=== PATIENT | female | born 1990 | race Two or more races ===

== ENCOUNTER → 2018-04-03 | Outpatient (REF) | payer OTHER | LOC: M LAB REF 18:57 | DX: R30.0 Dysuria (principal) | CPT/HCPCS: 87186 ==

== ENCOUNTER → 2019-03-04 | Outpatient (CLI) | payer OTHER ==
--- NOTE | 2019-03-04 15:19 | REP ---
REASON: Pain in the 3rd, 4th, and 5th digits after trauma. FINDINGS: No acute fracture or destructive osseous lesion. Electronically Signed by Aaron Vickers DO 03/04/2019 03:58 P
== END ==
LOC: M WUC 14:04
PROVIDERS: ATTEND Physician Assistant
DX: M79.674 Pain in right toe(s) (principal)

== ENCOUNTER → 2019-04-04 | Outpatient (REF) | payer OTHER | LOC: M SFHCPLAZ 10:00 | PROVIDERS: ATTEND Dermatology | DX: D22.9 Melanocytic nevi, unspecified (principal) ==

== ENCOUNTER → 2019-05-04 | Outpatient (REF) | payer OTHER | LOC: M LAB REF 12:29 | PROVIDERS: ATTEND Physician Assistant | DX: J02.9 Acute pharyngitis, unspecified (principal) ==

== ENCOUNTER → 2019-09-05 | Outpatient (CLI) | payer OTHER ==
[~2019-09-05] MED LIST: COLA100C5 PO; FERR325T3 PO; MULTTAB20 PO
== END ==
LOC: M RAD 07:32
PROVIDERS: ATTEND Internal Medicine Hematology & Oncology
DX: Z53.9 Procedure and treatment not carried out, unspecified reason (principal); R16.1 Splenomegaly, not elsewhere classified

== ENCOUNTER → 2019-09-06 | Outpatient (CLI) | payer OTHER ==
--- NOTE | 2019-09-06 08:44 | REP ---
Clinical: Thrombocytopenia Technique: Conway scale ultrasound using curved array transducer. Findings: The liver and pancreas are normal in contour, size, and echogenicity without focal hepatic or pancreatic lesions identified. The spleen is moderately enlarged and measures 13.5 x 14.2 x 6.1 cm without focal splenic lesion identified. The gallbladder is normal without gallstones, wall thickening or pericholecystic fluid. No biliary ductal dilatation is appreciated, and the common bile duct measures 6.6 mm diameter. The bilateral kidneys are normal in reniform shape without hydronephrosis. Right kidney measures 10.5 x 5.5 x 5.2cm; left kidney measures 10.9 x 5.4 x 6.2cm. No ascites. Visualized portions of the abdominal aorta normal. Impression: Moderate splenomegaly without focal splenic lesion. Electronically Signed by Prasanna Alarcon MD 09/06/2019 08:36 A
== END ==
LOC: M RAD 07:11
PROVIDERS: ATTEND Internal Medicine Hematology & Oncology
DX: D69.6 Thrombocytopenia, unspecified (principal); R16.1 Splenomegaly, not elsewhere classified

== ENCOUNTER 2020-02-09 17:27 | Inpatient (IN) | payer OTHER ==
[~2020-02-09] VITALS: Ht 175.3 cm; Wt 105.1 kg
[~2020-02-09 17:27] MED LIST changes: +CLAR10CA3 PO; +FERR325T3; +PRIL20TA2 PO
[2020-02-09 17:48] VITALS: BP 123/74
[2020-02-09] MEDS ORDERED: TUMS750C5 PO (17:51)
[2020-02-09] MEDS ORDERED: PROTPAK PO (17:51)
[2020-02-09] MEDS ORDERED: PRED50TA PO ×2 (17:51→21:28)
[2020-02-09 19:06] LABS: HEMATOCRIT 38.9 % (36.0-47.0); HEMOGLOBIN 12.7 g/dl (12.0-15.5); MEAN CORPUSCULAR HEMOGLOBIN 30.3 pg (27.0-33.0); MEAN CORPUSCULAR HGB CONC 32.6 g/dl (32.0-36.5); MEAN CORPUSCULAR VOLUME 92.8 fl (80.0-96.0); RED BLOOD COUNT 4.19 10^6/uL (4.00-5.40); WHITE BLOOD COUNT 13.3 10^3/uL (4.0-10.0)
[2020-02-09 19:11] LABS: PLATELET COUNT, AUTOMATED 73 10^3/uL (150-450)
[2020-02-09 20:23] VITALS: BP 133/75
--- NOTE | 2020-02-09 21:25 | HPEPDOC ---
Obstetrical History & Physical General Date of Admission Feb 09, 2020 at 17:27 History of Present Illness 29yo at 39+0wks presenting for IOL for ITP. She reports good FM. Denies regular ctx's, VB, or LOF. Information Provided By: Patient Age: 29 : 2 Term: 1 Pre-term: 0 Abortions: 0 Livin Care Care: Good Care Dating Final EDC: Feb 16, 2020 Final EDC for Daily Update: Feb 16, 2020 Final EDC by: LMP (c/w 8w1d U/S on [id number]) LMP: May 12, 2019 1st Trimester Date: Jul 08, 2019 Weeks + Days: 8 (+1) EGA at Admission: 39 (+0) Antepartum Course Diagnos(e)s ITP Varicella non-immune Circumvellate placenta Anemia of Excessive weight gain in Obesity in Height (inches): 69 Pre- weight (lbs.): 185 Admission Weight (lbs.): 233 Change in Weight (lbs.): 48 Past Medical History Past Obstetrical History : Past Obstetrical History: Multigravida Date of Delivery: May 08, 2012 Gestation: 39 (+4) Type of Delivery: Spontaneous Vaginal Del. 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 pertinent history Past Medical History Medical History Idiopathic thrombocytopenia Surgical History: Denies/None Family History Significant Family History: Diabetes (Mother), Other (Sister - bipolar, schizophrenia) Social History Marital Status: Family situation: Spouse/partner home Psychosocial History: No pertinent psych hx * Smoker: former Smoker (quit cigarettes in 2015, quit vaping Jul 2019) Alcohol: Denies Drugs: denies Abuse Violence Screening Have you been hit/kicked/slapp: No Have you been sexually assault: No Imunizations Tdap status: current (given 11/29/2019) Influenza Status: declined Allergies Coded Allergies: sulfamethoxazole (Verified Allergy, Unknown, 09/01/19) RASH trimethoprim (Verified Allergy, Unknown, 09/01/19) RASH Medications Scheduled Pantoprazole Sodium (Protonix) 40 Mg Granpkt.dr, 40 MG PO BID Prednisone (Prednisone) 50 Mg Tablet, 50 MG PO DAILY for low platelets No122/Iron/Folic Acid ( Multi Tablet) 1 Each Tablet, 1 TAB PO DAILY Scheduled PRN Calcium Carbonate (Tums) 300 Mg Tab.chew, 750 MG PO Q6HP PRN for HEARTBURN Physical Examination Physical Examination GENERAL: Alert and oriented times three. HEENT: NC/AT, airway patent and self-maintained ABDOMEN: Gravid and non-tender to touch. FETUS: Is vertex (VTX) by sterile vaginal examination (SVE), fetus is vertex (VTX) by Hayden. CARDS: well-perfused RESP: no exaggerated respiratory effort appreciated SVE: NEFG, cervix 2/50/-3, no VB, no abnml vaginal discharge, no pooling/valsalva EXTREMITIES: No edema. Vital Signs/I&O Vital Signs Date Time Temp Pulse Resp B/P (MAP) Pulse Ox O2 Delivery O2 Flow Rate FiO2 02/09/20 17:48 98.0 121 18 123/74 (90) Laboratory Data 24[facility] LABS Laboratory Tests 2 02/09/20 17:35: Serology Scanned Report Hepatitis B Testing 02/09/20 18:36: Nucleated Red Blood Cells % (auto) 0.0, Immature Platelet Fraction 12.6H CBC/BMP Laboratory Tests 02/09/20 18:36 Microbiology COVID test: negative Urine Culture: No Growth Pertinent Laboratoy Data Blood Type: A+ RBC Antibody Screen: Negative HIV: Negative Hepatitis B: Negative Rapid Plasma Reagin: Nonreactive Rubella: Immune Varicella: Nonreactive Chlamydia/Gonorrhea: Negative Group B Streptococcus: Negative (01/24/2020) Quad Screen Test: Declined Cystic Fibrosis: Negative Glucose Tolerance Test: 65 Anatomy Ultrasound Ultrasound Date: Aug 19, 2019 Placenta Location: Anterior Normal Anatomy: Yes Placenta Previa: No Estimated Weight (grams): 366 Other Ultrasounds [id number] - EFW 69th percentile, circumvellate placenta resolved to anterior only [id number] - EFW 85th percentile, BPP 01/20 Vaginal Examination Dilation: 2cm Effacement: 50% Station: -3 Cervical Consistency: Medium Cervical Position: Posterior Presentation: Cephalic presentation Assessment Heart Rate (FHR): 145 Variability: Moderate Accelerations: Positive Decelerations: None Tocometer Contractions: No Multi-drug resistant Organism: No history of MDRO Assessment/Plan Assessment 29yo at 39+0wks presenting for scheduled IOL for h/o ITP attempting to be in a window of higher platelet counts after completing 2 week steroid course. Plan Admit and orient. CBC, T&C due to low plts Reconciliation Analyst and consent. Diet: clears as tolerated Group B Streptococcus (GBS) [negative]. Patient noted to have decrease in plt's from 97 to 73 upon admission today. Patient counseled that risk of plt's dropping further with prolonging . Patient amenable to proceeding with IOL today. Patient counseled that due to low platelets, patient is not eligible for epidural placement. We discussed using IV pain meds (counseled on risk of infant needing to go to NICU due to risk of respirator depression) and pudendal nerve block at time of delivery. Ghanshyam tierenny tearful but understanding of the recommendation for no epidural by anesthesia for concern of spinal bleeding. Patient counseled that if section is indicated, she will need general anesthesia. Will start IOL with cytotec 50mcg buccally. Will reassess in 4 hours to determine next step of IOL. Patient may have intermittent monitoring per SOP until pitocin protocol. Anticipate [normal spontaneous delivery ()]. CHARITY CASANOVA DO Feb 09, 2020 21:25
[2020-02-09 22:29] VITALS: BP 119/57
[2020-02-09 23:51] VITALS: BP 117/66
[2020-02-10] VITALS (14 sets, daily range): BP systolic 96–134; BP diastolic 52–79
--- NOTE | 2020-02-10 01:00 | IPNPDOC ---
Obstetrical Progress Note Date of Service Feb 10, 2020 Subjective Patient reporting mild cramping pelvic pain. She is tolerating clears well. Denies LOF or VB. Objective Vital Signs Date Time Temp Pulse Resp B/P (MAP) Pulse Ox O2 Delivery O2 Flow Rate FiO2 02/09/20 23:51 85 117/66 (83) 02/09/20 20:23 98.6 18 Assessment Heart Rate (FHR): 135 Variability: Moderate Accelerations: Positive Decelerations: None Heart Rate Tracing: Category I Tocometer Contractions: Yes Frequency: irregular Sterile Vaginal Examination Dilation: 4 cm Effacement (%): 70% Station: -2 Cervical Consistency: Soft Cervical Position: Middle Postion/Presentation: Cephalic presentation Assessment and Plan Status: Reassuring Group B Streptococcus: Negative Anticipate: Vaginal Delivery Additional Comments 29yo admitted for IOL for ITP with platelets on admission 73k. Patient has made cervical change on cytotec to now 4/70/-2. FHRT cat I. Will start pitocin protocol for continued IOL. Continuous EFM. Consider AROM at next SVE. Patient desires to proceed, safe to continue. CHARITY CASANOVA DO Feb 10, 2020 01:00
[2020-02-10] MEDS ORDERED: ONDANSETRON 4MG/2ML VIAL As Ordered ONE (05:54)
--- NOTE | 2020-02-10 06:03 | IPNPDOC ---
Obstetrical Progress Note Date of Service Feb 10, 2020 Subjective Patient reporting worsening pain with ctx's. She is interested in IV pain meds. Objective Vital Signs Date Time Temp Pulse Resp B/P (MAP) Pulse Ox O2 Delivery O2 Flow Rate FiO2 02/09/20 23:51 85 117/66 (83) 02/09/20 20:23 98.6 18 Assessment Heart Rate (FHR): 140 Variability: Moderate Accelerations: None Decelerations: Variable Heart Rate Tracing: Category I Tocometer Contractions: Yes Frequency: every 1-3 min. Sterile Vaginal Examination Dilation: 7 cm Effacement (%): 100% Station: -1 Cervical Consistency: Soft Cervical Position: Anterior Postion/Presentation: Cephalic presentation Assessment and Plan Status: Reassuring Group B Streptococcus: Negative Anticipate: Vaginal Delivery Additional Comments 29yo admitted for IOL for ITP. Patient has progressed to 7/c/-1. Patient counseled on r/b/a/i of IV pain meds. Patient elects to decline IV pain meds. Patient counseled and informed consent obtained for AROM which was performed notable for scant clear fluid. FHRT cat II for intermittent variable decels. P itocin decreased from 8mU/min to 4mU/min. Will continue to monitor closely for expectant . CHARITY CASANOVA DO Feb 10, 2020 06:03
[2020-02-10] MEDS ORDERED: METHYLERGONOVINE MALEATE 0.2 MG/ML VIAL (J2210) As Ordered ONE (06:30)
[2020-02-10] MEDS ORDERED: IBUPROFEN 800 MG TAB As Ordered ONE (07:03)
--- NOTE | 2020-02-10 08:16 | DNPDOC ---
[facility] Delivery Note Delivery Note DATE OF DELIVERY: [id number] PREDELIVERY DIAGNOSIS: 39+1/7 weeks' gestation and labor. POST DELIVERY DIAGNOSIS: Delivered. PROCEDURE: Spontaneous vaginal delivery. LEATHER SKINNER: Dr. Charity Casanova ANESTHESIA: Pudendal nerve block. ESTIMATED BLOOD LOSS: 200mL. FINDINGS: 8 pound 9 ounce 3890 male , Score 8/9, nuchal cord times 2. DELIVERY SUMMARY: 29yo G2 now P2 admitted for IOL for ITP. Patient made excellent progress and was found to be c/c/+3. A pudendal nerve block and perineal block was performed. With good pushing effort, spontaneous vaginal del hiren of a viable term male . Presentation was OA with restitution to ROT with left shoulder anterior position. Anterior shoulder delivered spontaneously followed by body. Double nuchal cord delivered through then reduced on delivery field. Infant placed on maternal abdomen with care transferred to team. Pitocin IV bolus initiated upon delivery of infant. Third stage spontaneous with intact placenta. Fundal massage performed notable for bleeding with passage of clots. Methergine 0.2mg given IM with resolution. Inspection revealed a 1st degree perineal laceration that was repaired in routine fashion. EBL 200ml. Mother and infant stable and bonding upon my leaving the room. CHARITY CASANOVA DO Feb 10, 2020 08:16
[2020-02-10] MEDS ORDERED: [UNRECOGNIZED DRUG - OTHER] SC ONE (10:00)
[2020-02-11 05:52] VITALS: BP 105/55
[2020-02-11] MEDS ORDERED: DIBU10OI TOP (07:34)
[2020-02-11] MEDS ORDERED: DOCU100C16 PO (07:34)
[2020-02-11] MEDS ORDERED: IBUP-1022 PO (07:34)
--- NOTE | 2020-02-28 11:54 | DSES ---
DATE OF ADMISSION: 02/09/2020 DATE OF DISCHARGE: 02/11/2020 A 29-year-old 2, now para 2, admitted for induction of labor at 39 weeks because of thrombocytopenia, gestational. She had a spontaneous vaginal delivery, live- male , 8 pounds 9 ounces, 3890 grams, scores of 8 and 9 at one and five minutes, respectively. She had a pudendal nerve block for anesthesia. A small first-degree laceration was repaired in the usual fashion. Discharge hemoglobin 12.7, hematocrit 38.9, and platelets were 73. Her vital signs on discharge: Blood pressure 105/55, respirations 18, pulse 76, temperature 97.7. The rest of the examination is unremarkable. Normocephalic, atraumatic. Neck: Full range of motion. Pupils equal and reactive to light. Distal pulses are symmetric. No evidence of deep venous thrombosis (DVT), pulmonary embolus (PE), or superficial phlebitis. Chest is clear bilaterally to bases. No wheezes or rhonchi. No costovertebral angle (CVA) tenderness. Abdomen was soft. Four-quadrant bowel sounds are noted. Lochia is moderate. No rashes, lesions, or pruritus. No arthralgia or myalgia. No complaint of joint pain. No complaint of cough, wheeze, shortness of breath, or dyspnea on exertion. No nausea, vomiting, diarrhea, or constipation. She has no bruising evidence anywhere. In summary, we have a term gestation, delivered a live- male infant. Plans are for discharge. Six-week checkup at [facility]. Medications were dispensed at [facility]. All questions were answered. Patient was discharged stable. [facility]
--- NOTE | 2020-03-24 07:44 | IPN ---
DATE: 02/10/2020 This patient and her requested circumcision of their male . After discussing the risks and benefits of the circumcision, the medical and non-medical indications, the penile block, and aftercare, they expressed understanding of the penile block and aftercare and bleeding. All questions were answered. 20 minute discussion. We await the clearance by the registered physical therapist. ELLEN
== END 2020-02-11 10:45 | disposition home or self-care (01) | DRG 806 ==
LOC: M LDI 17:27 → M OBS 02-10 10:50
PROC: 3E033VJ Introduction of Other Hormone into Peripheral Vein, Percutaneous Approach (ICD-10-PCS; 2020-02-09)
PROC: 10E0XZZ Delivery of Products of Conception, External Approach (ICD-10-PCS; principal; 2020-02-10)
PROC: 0HQ9XZZ Repair Perineum Skin, External Approach (ICD-10-PCS; 2020-02-10)
DX: O70.0 First degree perineal laceration during delivery (principal); Z37.0 Single live birth; D69.3 Immune thrombocytopenic purpura; O99.12 Other diseases of the blood and blood-forming organs and certain disorders involving the immune mechanism complicating childbirth; Z3A.39 39 weeks gestation of pregnancy; O69.81X0 Labor and delivery complicated by cord around neck, without compression, not applicable or unspecified; Z79.899 Other long term (current) drug therapy